=== PATIENT | female | born 1995 ===

== ENCOUNTER 2023-07-08 07:32 | Outpatient (CLI) | payer OTHER | END 2023-07-08 07:33 | disposition home or self-care (01) | LOC: ULT 07:32 | PROVIDERS: ATTEND Nurse Practitioner Family | DX: R10.11 Right upper quadrant pain (principal); R10.12 Left upper quadrant pain; K76.0 Fatty (change of) liver, not elsewhere classified | CPT/HCPCS: 76700 ==